=== PATIENT | female | born 1965 | race Caucasian/White ===

== ENCOUNTER 2018-07-09 01:41 | Emergency (ER) | payer SELFPAY ==
[~2018-07-09] VITALS: Ht 160 cm; Wt 78.0 kg
[2018-07-09 01:44] VITALS: BP 159/80
== END 2018-07-09 02:38 | disposition left against medical advice (07) ==
LOC: ER 02:04
DX: Z53.21 Procedure and treatment not carried out due to patient leaving prior to being seen by health care provider (principal); E11.9 Type 2 diabetes mellitus without complications; F41.9 Anxiety disorder, unspecified; Z88.8 Allergy status to other drugs, medicaments and biological substances